=== PATIENT | female | born 2000 | race African-American/Black ===

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

== ENCOUNTER 2023-05-28 20:34 | Emergency (ER) | payer BC, MEDICAID ==
[~2023-05-28] VITALS: Ht 172.7 cm; Wt 85.0 kg
[2023-05-28 21:20] VITALS: TEMP 98.1; O2SAT 99
[2023-05-29] MEDS ORDERED: IBUP-2029 MT (00:25)
[2023-05-29 00:30] VITALS: BP 121/82; PULSE 94; RESP 18
[2023-05-29] MEDS ORDERED: HYDROCODONE/ACETAMINOPHEN 10/325MG TABLET PO ONE (00:30)
[2023-05-29] MEDS ORDERED: SULF1TAB48 MT (08:58)
== END 2023-05-29 01:31 | disposition home or self-care (01) ==
LOC: ER 20:34
DX: S00.12XA Contusion of left eyelid and periocular area, initial encounter (principal); Y08.89XA Assault by other specified means, initial encounter; Y93.89 Activity, other specified; Y92.89 Other specified places as the place of occurrence of the external cause; Y99.8 Other external cause status
CPT/HCPCS: 70486; 99284

== ENCOUNTER 2023-05-29 08:22 | Emergency (ER) | payer MEDICAID ==
[~2023-05-29] VITALS: Ht 170.2 cm; Wt 75.0 kg
[~2023-05-29 08:22] MED LIST: IBUP-2029 MT
[2023-05-29 08:28] VITALS: BP 118/75; PULSE 95; RESP 16; TEMP 98.1; O2SAT 99
[2023-05-29] MEDS ORDERED: SULF1TAB48 MT (08:58)
== END 2023-05-29 09:45 | disposition home or self-care (01) ==
LOC: ER 08:22
DX: M54.50 Low back pain, unspecified (principal); R21 Rash and other nonspecific skin eruption; J45.909 Unspecified asthma, uncomplicated
CPT/HCPCS: 99283